=== PATIENT | female | born 2000 | race Two or more races ===

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

== ENCOUNTER 2019-10-28 03:49 | Day surgery (SDC) | payer MEDICAID, OTHER ==
[~2019-10-28] VITALS: Ht 157.5 cm; Wt 57.2 kg
--- NOTE | 2019-10-28 04:12 | NUR ---
Patient c/o cramping RLQ abd pain since yesterday. Denies trauma. Denies fever, N/V/D. Pain increases when she moves her leg. Patient is in NAD. Respirations even and unlabored.
[2019-10-28] MEDS ORDERED: MORPHINE SULFATE 4 MG/ML, 1ML ONE ×2 (04:29→06:37)
[2019-10-28] MEDS ORDERED: ONDANSETRON 2MG/ML, 2ML ONE ×2 (04:29→08:07)
[2019-10-28] MEDS ORDERED: MORPHINE SULFATE 4 MG/ML, 1ML IVPush PRN (04:30)
[2019-10-28] MEDS ORDERED: ONDANSETRON 2MG/ML, 2ML IVPush ONE (04:30)
[2019-10-28 04:39] LABS: BASOPHILS # (AUTO) 0.01 x10^3/uL (0-0.1); BASOPHILS % (AUTO) 0 % (0-1); EOSINOPHILS # (AUTO) 0.21 x10^3/uL (0-0.4); EOSINOPHILS % (AUTO) 2 % (1-7); LYMPHOCYTES # (AUTO) 2.18 x10^3/uL (1-3.4); LYMPHOCYTES % (AUTO) 15 % (22-44); MD NO; MEAN CORPUSCULAR HEMOGLOBIN 31.4 pg (27.0-34.8); MEAN CORPUSCULAR HGB CONC 33.6 g/dL (32.4-35.8); MEAN CORPUSCULAR VOLUME 93.5 fL (80-100); MEAN PLATELET VOLUME 8.2 fL (7.4-10.4); MONOCYTES # (AUTO) 0.85 x10^3/uL (0.2-0.8); MONOCYTES % (AUTO) 6 % (2-9); NEUTROPHILS # (AUTO) 11.03 x10^3/uL (1.8-6.8); NEUTROPHILS % (AUTO) 77 % (42-75); PLATELET COUNT 293 x10^3/uL (130-400); RED BLOOD COUNT 4.36 x10^6/uL (3.82-5.3); RED CELL DISTRIBUTION WIDTH 12.9 % (9.6-15.2)
[2019-10-28 04:39] LABS: MICROSCOPIC NOT IND
[2019-10-28 04:47] LABS: CULTURE INDICATED? NO
[2019-10-28 04:50] LABS: ALANINE AMINOTRANSFERASE 21 U/L (12-78); ALBUMIN 3.8 g/dL (3.4-5.0); ANION GAP 6 mmol/L (5-15); CALCIUM 8.8 mg/dL (8.5-10.1); CHLORIDE 109 mmol/L (98-107)
[2019-10-28 04:54] LABS: ALKALINE PHOSPHATASE 93 U/L (45-117); BILIRUBIN,TOTAL 0.5 mg/dL (0.2-1.0); TOTAL PROTEIN 8.2 g/dL (6.4-8.2)
[2019-10-28] MEDS ORDERED: OMNIPAQUE 350 MG/ML, 100ML BOTTLE ONE (05:20)
--- NOTE | 2019-10-28 05:35 | NUR ---
gen surg paged @[phone]
--- NOTE | 2019-10-28 05:41 | NUR ---
Patient states her pain is better; awaiting CT results.
[2019-10-28] MEDS ORDERED: CEFOTETAN PMX 1GM/50ML 0 ML ONE (05:43)
[2019-10-28] MEDS ORDERED: SODIUM CHLORIDE 0.9% 1,000ML IVBOLUS ONE (06:00)
[2019-10-28] MEDS ORDERED: CEFOTETAN PMX 2GM/50ML 50 ML IV ONE (06:00)
[2019-10-28 06:39] VITALS: BP 99/61
--- NOTE | 2019-10-28 06:42 | NUR ---
Spoke with MERCED Whitley from [facility] for report. Patient to be transferred to [facility] around [id number]. Medicated patient with second dose of morphine per sep.
--- NOTE | 2019-10-28 06:46 | NUR ---
Patient to preop now.
[2019-10-28] MEDS ORDERED: BUPIVACAINE/PF-EPI 0.5% 1:200K ONE (07:00)
[2019-10-28] MEDS ORDERED: CHLORHEXIDINE 15 ML UDC ONE (07:18)
[2019-10-28] MEDS ORDERED: FENTANYL PF 250 MCG/5ML ONE (07:20)
[2019-10-28] MEDS ORDERED: MIDAZOLAM 1 MG/ML, 2ML ONE (07:20)
[2019-10-28] MEDS ORDERED: CHLORHEXIDINE 15 ML UDC MM ONE (07:30)
[2019-10-28] MEDS ORDERED: KETOROLAC 30 MG/1 ML ONE (07:31)
[2019-10-28] MEDS ORDERED: BUPIVACAINE/PF-EPI 0.5% 1:200K INFIL ONE (07:31)
[2019-10-28] MEDS ORDERED: PROMETHAZINE 25 MG SUPP PR PRN (08:00)
[2019-10-28] MEDS ORDERED: LORazepam 2 MG/ML, 1ML IVPush PRN (08:00)
[2019-10-28] MEDS ORDERED: FENTANYL PF 100 MCG/2ML IV PRN (08:00)
[2019-10-28] MEDS ORDERED: PROMETHAZINE 25 MG/ML, 1ML IV PRN (08:00)
[2019-10-28] MEDS ORDERED: HYDROmorphone 2 MG/ML, 1ML IVPush PRN (08:00)
[2019-10-28] MEDS ORDERED: ONDANSETRON ODT 8 MG PO PRN (08:00)
[2019-10-28] MEDS ORDERED: ACETAMINOPHEN 325 MG TABLET PO PRN (08:00)
[2019-10-28] MEDS ORDERED: ONDANSETRON 2MG/ML, 2ML IV PRN (08:00)
[2019-10-28] MEDS ORDERED: OXYcodone 5 MG/5 ML ORAL.SOL UDC PO PRN (08:00)
[2019-10-28] MEDS ORDERED: ROCURONIUM 10MG/ML,5ML ONE (08:07)
[2019-10-28] MEDS ORDERED: NEOSTIGMINE 1 MG/ML, 10ML ONE (08:07)
[2019-10-28] MEDS ORDERED: SUGAMMADEX 200 MG/2 ML IVPush ONE (08:07)
[2019-10-28] MEDS ORDERED: DEXAMETHASONE 4 MG/ML, 1ML ONE (08:07)
[2019-10-28] MEDS ORDERED: PROPOFOL 10 MG/ML, 20ML ONE (08:07)
[2019-10-28] MEDS ORDERED: CEFAZOLIN 1,000 MG ONE (08:07)
[2019-10-28] MEDS ORDERED: GLYCOPYRROLATE 0.2MG/1ML, 5ML ONE (08:07)
[2019-10-28] MEDS ORDERED: SUCCINYLCHOLINE 20 MG/ML, 10ML ONE (08:07)
[2019-10-28] MEDS ORDERED: LIDOCAINE-MPF 2% ,5ML ONE (08:08)
[2019-10-28] MEDS ORDERED: LACTATED RINGERS 1,000 ML IV SCH (11:48)
== END 2019-10-28 12:47 | disposition home or self-care (01) ==
LOC: ED 05:01 → EDIP 05:57 → UNDOADMOB 05:57 → INTOOBSV 05:57 → EDSTATUS 08:00 → SDC 09:45 → ED 12:50
PROVIDERS: ATTEND Student in an Organized Health Care Education/Training Program
DX: K35.80 Unspecified acute appendicitis (principal)
CPT/HCPCS: 36415; 44970; 74177; 80053; 81003; 83690; 84703; 85025; 88304; 96374; 96375; 99285; J0690; J1100; J1885; J2250; J2270; J2405; J2704; J2710; J3010; J3490; J7030; J7120; Q9967; J0330

== ENCOUNTER 2019-11-03 15:56 | Emergency (ER) | payer SELFPAY ==
[~2019-11-03] VITALS: Ht 157.5 cm; Wt 56.9 kg
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
[2019-11-03] MEDS ORDERED: SODIUM CHLORIDE 0.9% 1,000ML IVBOLUS ONE (17:00)
[2019-11-03] MEDS ORDERED: SODIUM CHLORIDE FLUSH 10ML SYR IVF ONE (17:00)
--- NOTE | 2019-11-03 17:11 | NUR ---
PIV INITIATED LABS DRAWN AND SENT TO LAB. PT MEDICATED PER MAR, NAD NOTED
[2019-11-03 17:14] LABS: BASOPHILS # (AUTO) 0.03 x10^3/uL (0-0.1); BASOPHILS % (AUTO) 0 % (0-1); EOSINOPHILS # (AUTO) 0.08 x10^3/uL (0-0.4); EOSINOPHILS % (AUTO) 1 % (1-7); LYMPHOCYTES # (AUTO) 1.15 x10^3/uL (1-3.4); LYMPHOCYTES % (AUTO) 12 % (22-44); MD NO; MEAN CORPUSCULAR HEMOGLOBIN 31.2 pg (27.0-34.8); MEAN CORPUSCULAR HGB CONC 33.2 g/dL (32.4-35.8); MEAN PLATELET VOLUME 8.4 fL (7.4-10.4); MONOCYTES # (AUTO) 0.38 x10^3/uL (0.2-0.8); MONOCYTES % (AUTO) 4 % (2-9); NEUTROPHILS # (AUTO) 7.66 x10^3/uL (1.8-6.8); NEUTROPHILS % (AUTO) 82 % (42-75); PLATELET COUNT 314 x10^3/uL (130-400); RED BLOOD COUNT 4.39 x10^6/uL (3.82-5.3); RED CELL DISTRIBUTION WIDTH 12.4 % (9.6-15.2)
[2019-11-03 17:21] LABS: ALANINE AMINOTRANSFERASE 19 U/L (12-78); ALBUMIN 3.8 g/dL (3.4-5.0); ANION GAP 8 mmol/L (5-15); CHLORIDE 107 mmol/L (98-107); CREATININE 0.56 mg/dL (0.55-1.02)
[2019-11-03 17:25] LABS: ALKALINE PHOSPHATASE 94 U/L (45-117); BILIRUBIN,TOTAL 0.4 mg/dL (0.2-1.0); TOTAL PROTEIN 8.5 g/dL (6.4-8.2)
--- NOTE | 2019-11-03 18:21 | NUR ---
PT AWAITING MD FOR UPDATE ON POC, VSS. NAD NOTED
[2019-11-03 19:13] VITALS: BP 101/62
== END 2019-11-03 19:14 | disposition home or self-care (01) ==
LOC: ED 17:15
DX: R55 Syncope and collapse (principal); R42 Dizziness and giddiness
CPT/HCPCS: 36415; 70450; 80053; 84703; 85025; 93005; 99285; J7030

== ENCOUNTER 2020-07-29 10:28 | Emergency (ER) | payer OTHER ==
[~2020-07-29] VITALS: Ht 157.5 cm; Wt 56.7 kg
[2020-07-29] MEDS ORDERED: ONDANSETRON 2MG/ML, 2ML ONE (10:53)
--- NOTE | 2020-07-29 10:59 | NUR ---
PT HAS CO ABDOMINAL TENDERNESS W CRAMPING IN LOWER ABDOMEN W N. PT LMP IN MAY, STATES PERIODS ARE IRREGULAR.
[2020-07-29] MEDS ORDERED: SODIUM CHLORIDE FLUSH 10ML SYR IVF ONE (11:00)
[2020-07-29] MEDS ORDERED: ONDANSETRON 2MG/ML, 2ML IVPush ONE (11:00)
[2020-07-29] MEDS ORDERED: SODIUM CHLORIDE 0.9% 1,000ML IVBOLUS ONE (11:00)
[2020-07-29 11:18] LABS: BASOPHILS % (AUTO) 1 % (0-1); EOSINOPHILS % (AUTO) 0 % (1-7); LYMPHOCYTES % (AUTO) 19 % (22-44); MEAN CORPUSCULAR HEMOGLOBIN 31.9 pg (27.0-34.8); MEAN CORPUSCULAR HGB CONC 34.2 g/dL (32.4-35.8); MEAN PLATELET VOLUME 8.6 fL (7.4-10.4); MONOCYTES % (AUTO) 7 % (2-9); NEUTROPHILS % (AUTO) 73 % (42-75); PLATELET COUNT 280 x10^3/uL (130-400); RED BLOOD COUNT 4.37 x10^6/uL (3.82-5.3); RED CELL DISTRIBUTION WIDTH 13.1 % (9.6-15.2)
[2020-07-29 11:23] LABS: MD NO
[2020-07-29 11:32] LABS: ALANINE AMINOTRANSFERASE 19 U/L (12-78); ANION GAP 8 mmol/L (5-15); CALCIUM 8.9 mg/dL (8.5-10.1); CHLORIDE 107 mmol/L (98-107); CREATININE 0.53 mg/dL (0.55-1.02)
[2020-07-29 11:47] LABS: ALKALINE PHOSPHATASE 71 U/L (45-117); BILIRUBIN,TOTAL 0.6 mg/dL (0.2-1.0); TOTAL PROTEIN 8.1 g/dL (6.4-8.2)
--- NOTE | 2020-07-29 12:11 | NUR ---
Patient/Caregiver given discharge instructions and they have confirmed that they understand the instructions. Patient ambulatory with steady gait.
[2020-07-29 12:25] VITALS: BP 115/85
== END 2020-07-29 12:26 ==
LOC: ED 11:18
DX: Z32.01 Encounter for pregnancy test, result positive (principal)
CPT/HCPCS: 36415; 80053; 83690; 84703; 85025; 96361; 96374; 99283; J2405; J7030

== ENCOUNTER 2020-08-06 08:12 | Emergency (ER) | payer OTHER ==
[~2020-08-06] VITALS: Ht 157.5 cm; Wt 56.0 kg
--- NOTE | 2020-08-06 08:35 | NUR ---
PATIENT ARRIVES WITH VAGINAL BLEEDING THAT BEGAN TODAY, SHE STATES IS , LMP NOV. SHE STATES MINIMAL BLEEDING. NO SOB NO LIGHT HEADED.
[2020-08-06 09:06] LABS: MICROSCOPIC INDICATED
--- NOTE | 2020-08-06 09:38 | NUR ---
patient in ultrasound
[2020-08-06 09:54] LABS: BASOPHILS % (AUTO) 0 % (0-1); EOSINOPHILS % (AUTO) 0 % (1-7); LYMPHOCYTES % (AUTO) 16 % (22-44); MEAN CORPUSCULAR HEMOGLOBIN 31.6 pg (27.0-34.8); MEAN CORPUSCULAR HGB CONC 33.7 g/dL (32.4-35.8); MEAN PLATELET VOLUME 8.6 fL (7.4-10.4); MONOCYTES % (AUTO) 4 % (2-9); NEUTROPHILS % (AUTO) 80 % (42-75); PLATELET COUNT 235 x10^3/uL (130-400); RED BLOOD COUNT 4.15 x10^6/uL (3.82-5.3); RED CELL DISTRIBUTION WIDTH 12.8 % (9.6-15.2)
[2020-08-06 09:55] LABS: MD NO
[2020-08-06 10:08] VITALS: BP 132/78
--- NOTE | 2020-08-06 10:08 | NUR ---
patient excited for her ultrasound photos and states feeling improved, and vag bleeding stopped.
== END 2020-08-06 10:20 | disposition home or self-care (01) ==
LOC: ED 08:51
DX: O20.0 Threatened abortion (principal); Z3A.01 Less than 8 weeks gestation of pregnancy
CPT/HCPCS: 36415; 76801; 81001; 84702; 85025; 86901; 99284

== ENCOUNTER 2020-10-22 09:36 | Emergency (ER) | payer OTHER, MEDICAID ==
[~2020-10-22] VITALS: Ht 157.5 cm; Wt 65.0 kg
--- NOTE | 2020-10-22 09:55 | NUR ---
at bedside for exam.
--- NOTE | 2020-10-22 10:15 | NUR ---
US at bedside for testing as ordered.
[2020-10-22] MEDS ORDERED: ONDANSETRON ODT 4 MG ONE (11:10)
[2020-10-22 11:30] LABS: BASOPHILS % (AUTO) 0 % (0-1); EOSINOPHILS % (AUTO) 0 % (1-7); LYMPHOCYTES % (AUTO) 6 % (22-44); MEAN CORPUSCULAR HEMOGLOBIN 32.7 pg (27.0-34.8); MEAN CORPUSCULAR HGB CONC 34.1 g/dL (32.4-35.8); MEAN PLATELET VOLUME 8.2 fL (7.4-10.4); MONOCYTES % (AUTO) 4 % (2-9); NEUTROPHILS % (AUTO) 90 % (42-75); PLATELET COUNT 247 x10^3/uL (130-400); RED BLOOD COUNT 4.03 x10^6/uL (3.82-5.3); RED CELL DISTRIBUTION WIDTH 13.7 % (9.6-15.2)
[2020-10-22] MEDS ORDERED: ONDANSETRON ODT 4 MG PO ONE (11:30)
--- NOTE | 2020-10-22 11:30 | NUR ---
NAUSEA RESOLVED AFTER BULB PLANTER ON REASSESSMENT.
[2020-10-22 11:37] LABS: MICROSCOPIC NOT IND
[2020-10-22 11:44] LABS: ALANINE AMINOTRANSFERASE 40 U/L (12-78); ALBUMIN 2.8 g/dL (3.4-5.0); ANION GAP 8 mmol/L (5-15); CALCIUM 8.3 mg/dL (8.5-10.1); CHLORIDE 105 mmol/L (98-107)
[2020-10-22 11:47] LABS: ALKALINE PHOSPHATASE 101 U/L (45-117); BILIRUBIN,TOTAL 0.5 mg/dL (0.2-1.0); TOTAL PROTEIN 7.2 g/dL (6.4-8.2)
--- NOTE | 2020-10-22 12:25 | NUR ---
US in room doing second exam now.
[2020-10-22 12:46] VITALS: BP 96/62
--- NOTE | 2020-10-22 12:47 | NUR ---
PT PROVIDED ICE AND WATER PER REQUEST AFTER OKAY GIVEN BY . AWAITING RESULTS OF SECOND US AT THIS TIME. LAB AND INITIAL US RESULTS REVIEWED.
--- NOTE | 2020-10-22 12:55 | NUR ---
Second US results reviewed and chart marked for recheck by .
== END 2020-10-22 13:11 | disposition home or self-care (01) ==
LOC: ED 10:29
DX: O26.892 Other specified pregnancy related conditions, second trimester (principal); K52.9 Noninfective gastroenteritis and colitis, unspecified; O21.8 Other vomiting complicating pregnancy; R10.13 Epigastric pain; Z3A.18 18 weeks gestation of pregnancy
CPT/HCPCS: 36415; 76700; 76815; 80053; 81003; 83690; 85025; 99285; Q0162

== ENCOUNTER 2021-03-17 22:56 | Outpatient (CLI) | payer OTHER, MEDICAID | END 2021-03-17 23:59 | disposition home or self-care (01) | LOC: LDOP 22:56 | PROVIDERS: ATTEND Obstetrics & Gynecology | DX: O26.899 Other specified pregnancy related conditions, unspecified trimester (principal); R10.9 Unspecified abdominal pain ==

== ENCOUNTER 2021-03-18 04:46 | Inpatient (IN) | payer OTHER, MEDICAID ==
[~2021-03-18] VITALS: Ht 157.5 cm; Wt 75.5 kg
[2021-03-18] MEDS ORDERED: OXYTOCIN 30U/ 0.9% NaCL 500ML 500 ML IV ONE (05:00)
[2021-03-18] MEDS ORDERED: TERBUTALINE 1 MG/ML, 1ML SQ PRN (05:00)
[2021-03-18] MEDS ORDERED: TERBUTALINE 1 MG/ML, 1ML IVPush PRN (05:00)
[2021-03-18] MEDS ORDERED: OXYTOCIN 30U/ 0.9% NaCL 500ML 500 ML ONE (05:01)
[2021-03-18] MEDS ORDERED: MISOPROSTOL 200 MCG TABLET ONE (05:01)
[2021-03-18] MEDS ORDERED: LIDOCAINE 1%, 20ML ONE (05:01)
[2021-03-18] MEDS ORDERED: AMPICILLIN 2 GM in SODIUM CHLORIDE 0.9% 100 ML IVPB STA (05:04)
[2021-03-18] MEDS: LACTATED RINGERS 1,000 ML IV SCH ×2 (05:15→21:30)
[2021-03-18] MEDS ORDERED: FENTANYL PF 100 MCG/2ML IV PRN (05:30)
[2021-03-18] MEDS ORDERED: D5%-LACTATED RINGERS 1,000 ML IV SCH (05:30)
[2021-03-18] MEDS ORDERED: FENTANYL PF 100 MCG/2ML IVPush PRN (05:30)
[2021-03-18] MEDS ORDERED: ONDANSETRON 2MG/ML, 2ML IVPush PRN (05:30)
[2021-03-18 06:20] LABS: BASOPHILS % (AUTO) 0 % (0-1); EOSINOPHILS % (AUTO) 0 % (1-7); LYMPHOCYTES % (AUTO) 5 % (22-44); MEAN CORPUSCULAR HEMOGLOBIN 32.3 pg (27.0-34.8); MEAN CORPUSCULAR HGB CONC 33.4 g/dL (32.4-35.8); MONOCYTES % (AUTO) 2 % (2-9); NEUTROPHILS % (AUTO) 92 % (42-75); PLATELET COUNT 244 x10^3/uL (130-400); RED BLOOD COUNT 3.76 x10^6/uL (3.82-5.3); RED CELL DISTRIBUTION WIDTH 13.7 % (9.6-15.2)
[2021-03-18] MEDS ORDERED: MAGNESIUM HYDROXIDE 8%, 30ML UDC PO PRN (07:00)
[2021-03-18] MEDS ORDERED: MISOPROSTOL 200 MCG TABLET PR PRN (07:00)
[2021-03-18] MEDS ORDERED: ACETAMINOPHEN 325 MG TABLET PO PRN ×2 (07:00)
[2021-03-18] MEDS ORDERED: HYDROcodone/APAP 5/325 TABLET PO PRN (07:00)
[2021-03-18] MEDS ORDERED: MEASLES,MUMPS&RUBELLA VACC/PF 0.5 ML SQ-VACC PRN (07:00)
[2021-03-18] MEDS ORDERED: RHOGAM FROM BLOOD BANK 1 NOTE EA IM/IV ONE (07:00)
[2021-03-18 08:08] VITALS: BP 116/76
[2021-03-18] MEDS: IBUPROFEN 600 MG TABLET PO PRN ×2 (08:56→17:15)
[2021-03-18] MEDS ORDERED: AMPICILLIN 1 GM in SODIUM CHLORIDE 0.9% 100 ML IVPB SCH (09:30)
[2021-03-18 13:00] VITALS: BP 105/65
[2021-03-18] MEDS: PRENATAL VIT/IRON/FA 1 EACH TABLET PO SCH (13:37)
[2021-03-18] MEDS: HYDROcodone/APAP 5/325 TABLET PO PRN (13:38)
[2021-03-18 17:00] VITALS: BP 98/54
[2021-03-18 18:55] LABS: BASOPHILS % (AUTO) 0 % (0-1); EOSINOPHILS % (AUTO) 0 % (1-7); LYMPHOCYTES % (AUTO) 13 % (22-44); MEAN CORPUSCULAR HEMOGLOBIN 32.3 pg (27.0-34.8); MEAN CORPUSCULAR HGB CONC 33.4 g/dL (32.4-35.8); MEAN PLATELET VOLUME 8.5 fL (7.4-10.4); MONOCYTES % (AUTO) 6 % (2-9); NEUTROPHILS % (AUTO) 81 % (42-75); PLATELET COUNT 249 x10^3/uL (130-400); RED BLOOD COUNT 3.41 x10^6/uL (3.82-5.3)
[2021-03-18 20:15] VITALS: BP 100/62
[2021-03-18] MEDS: OXYTOCIN 30U/ 0.9% NaCL 500ML 500 ML IV SCH (20:15)
[2021-03-19 01:01] VITALS: BP 95/59
[2021-03-19] MEDS: IBUPROFEN 600 MG TABLET PO PRN ×4 (01:04→21:41)
[2021-03-19] MEDS: DOCUSATE 100 MG CAPSULE PO PRN ×3 (01:04→19:27)
[2021-03-19] MEDS: OXYTOCIN 30U/ 0.9% NaCL 500ML 500 ML IV SCH ×3 (03:00→23:04)
[2021-03-19] MEDS: LACTATED RINGERS 1,000 ML IV SCH ×3 (05:30→21:40)
[2021-03-19 07:30] VITALS: BP 103/70
[2021-03-19] MEDS: PRENATAL VIT/IRON/FA 1 EACH TABLET PO SCH (08:24)
[2021-03-19 19:15] VITALS: BP 93/56
[2021-03-19] MEDS: HYDROcodone/APAP 5/325 TABLET PO PRN ×2 (19:27→23:53)
[2021-03-20] MEDS: IBUPROFEN 600 MG TABLET PO PRN ×2 (04:16→12:02)
[2021-03-20] MEDS: HYDROcodone/APAP 5/325 TABLET PO PRN ×2 (04:16→09:11)
[2021-03-20] MEDS: LACTATED RINGERS 1,000 ML IV SCH (06:16)
[2021-03-20] MEDS: DOCUSATE 100 MG CAPSULE PO PRN (06:30)
[2021-03-20 08:13] VITALS: BP 115/71
[2021-03-20] MEDS: PRENATAL VIT/IRON/FA 1 EACH TABLET PO SCH (08:22)
[2021-03-20] MEDS: OXYTOCIN 30U/ 0.9% NaCL 500ML 500 ML IV SCH (09:00)
== END 2021-03-20 13:15 | disposition home or self-care (01) | DRG 807 ==
LOC: LDOP 04:46 → LDIP 05:02 → 2NW 09:23
PROVIDERS: ADMIT Obstetrics & Gynecology; ATTEND Obstetrics & Gynecology
PROC: 0KQM0ZZ Repair Perineum Muscle, Open Approach (ICD-10-PCS; principal; 2021-03-18)
PROC: 10E0XZZ Delivery of Products of Conception, External Approach (ICD-10-PCS; 2021-03-18)
PROC: 10907ZC Drainage of Amniotic Fluid, Therapeutic from Products of Conception, Via Natural or Artificial Opening (ICD-10-PCS; 2021-03-18)
DX: O76 Abnormality in fetal heart rate and rhythm complicating labor and delivery (principal); Z37.0 Single live birth; Z3A.39 39 weeks gestation of pregnancy; Z85.43 Personal history of malignant neoplasm of ovary; Z20.822 Contact with and (suspected) exposure to COVID-19; O99.824 Streptococcus B carrier state complicating childbirth; O70.1 Second degree perineal laceration during delivery
CPT/HCPCS: 36415; 85025; 86592; 86850; 86900; 87635; G0378; J0290; J3010; J7120